=== PATIENT | male | born 1985 | race African-American/Black ===

== ENCOUNTER 2024-03-09 12:40 | Emergency (ER) | payer OTHER ==
--- OUTSIDE RECORDS SUMMARY | 2024-03-09 12:43 | XMS REPORT | Continuity of Care Document ---
Author Name Unknown Address [address] [facility] 1 [address] [place], [place] [id number] [place] [address] thconnect Address [address] [facility] 1 [address] [place] [address] Care Team Providers Care Anger Control Counselor Name Role Phone NO, PCP Primary Care Physician Unavailab LOVE Peterson Attending Clinician Unavailable MARY ELLEN EDWARDS Attending Clinician UnavailPAULIE Lofton Attending Clinician Unavailable LOVE HIGGINS Admitting Clinician Unavailable KADEN EDWARDSUSHOLA Admitting Clinician UnavailPAULIE Lofton Admitting Clinician Unavailable Payers Payer Name Policy Type Policy Number Effective Date Expirati on Date Source 22 [id number] Problems Condition Name Condition Details Condition Category Status Onset Date Resolution Date Last Treatment Date Treating Clinician Comments Source Acute renal failure syndrome Problem [facility] ([facility]) Heat exhaustion Problem [facility] ([facility]) Non-trauma tic rhabdomyol ysis Problem [facility] ([facility]) Dehydratio n Problem [facility] ([facility]) Nausea and vomiting Problem [facility] ([facility]) Allergies, Adverse Reactions, Alerts Allergy Name Allergy Type Status Severity Reaction(s) Onset Date Inactive Date Treating Clinician Comments Source No known drug Allergie s Miscella neous Allergy Active U Not Specified 04-08 10:50: 16 [facility] No known drug Allergie s Miscella neous Allergy Active U Not Specified 04-08 10:50: 16 [facility] No known drug Allergie s Miscella neous Allergy Active U Not Specified 04-08 10:50: 16 [facility] ([facility]) No known drug Allergie s Miscella neous Allergy Active U Not Specified 04-08 10:50: 16 [facility] ([facility]) No known drug Allergie s Miscella neous Allergy Active U Not Specified 04-08 10:50: 16 [facility] ([facility]) No known drug Allergie s Miscella neous Allergy Active U Not Specified 04-08 10:50: 16 [facility] ([facility]) No known drug Allergie s Miscella neous Allergy Active U Not Specified 04-08 10:50: 16 [facility] ([facility]) No known drug Allergie s Miscella neous Allergy Active U Not Specified 02-26 03:54: 05 [facility] ([facility]) No known drug Allergie s Miscella neous Allergy Active U Not Specified 02-26 03:54: 05 [facility] ([facility]) No known drug Allergie s Miscella neous Allergy Active U Not Specified 02-26 03:54: 05 [facility] ([facility]) No known drug Allergie s Miscella neous Allergy Active U Not Specified 02-26 03:54: 05 [facility] ([facility]) No known drug Allergie s Miscella neous Allergy Active U Not Specified 02-26 03:54: 05 [facility] ([facility]) No known drug Allergie s Miscella neous Allergy Active U Not Specified 08-02 12:32: 18 [facility] ([facility]) No known drug Allergie s Miscella neous Allergy Active U Not Specified 08-02 12:32: 18 [facility] ([facility]) No known drug Allergie s Miscella neous Allergy Active U Not Specified 08-02 12:32: 18 [facility] ([facility]) No known drug Allergie s Miscella neous Allergy Active U Not Specified 08-02 12:32: 18 [facility] ([facility]) No known drug Allergie s Miscella neous Allergy Active U Not Specified 08-02 12:32: 18 [facility] ([facility]) No known drug Allergie s Miscella neous Allergy Active U Not Specified 08-02 12:32: 18 [facility] ([facility]) No Known Allergie s NA Active 08-02 12:31: 01 [facility] ([facility]) Medications Ordered Medication Name Filled Medication Name Start Date Stop Date Current Medication? Ordering Clinician Indication Dosage Frequency Signature (SIG) Comments Components Source enoxaparin INJ 30 MG/0.3 ML SOLN enoxaparin INJ 30 MG/0.3 ML SOLN 04-09 09:00: 00 04-08 12:44 :00 No 30mg medication :enoxapari n INJ 30 MG/0.3 ML SOLN|dose: 30.0 mg|route:S UBCUTANEOU S|frequenc y:DAILY [facility] ([facility]) enoxaparin INJ 40 MG/0.4 ML SOLN enoxaparin INJ 40 MG/0.4 ML SOLN 04-09 09:00: 00 04-08 12:44 :00 No 40mg medication :enoxapari n INJ 40 MG/0.4 ML SOLN|dose: 40.0 mg|route:S UBCUTANEOU S|frequenc y:DAILY [facility] ([facility]) NS SOLN NS SOLN 04-09 03:00: 00 04-08 12:44 :00 No 500mL medication :NS SOLN|dose: 500.0 mL|route:I NTRAVENOUS |frequency :EVERY 3 AM [facility] ([facility]) NS SOLN NS SOLN 04-08 19:30: 00 04-08 12:44 :00 No 1000mL medication :NS SOLN|dose: 1000.0 mL|route:I NTRAVENOUS |frequency :CONT [facility] ([facility]) pantoprazol e INJ 40 MG SOLR pantoprazol e INJ 40 MG SOLR 04-08 19:23: 00 04-08 12:44 :00 No 40mg medication :pantopraz ole INJ 40 MG SOLR|dose: 40.0 mg|route:I NTRAVENOUS |frequency :DAILY [facility] ([facility]) LR SOLN LR SOLN 04-08 19:21: 04-08 12:44 :00 No 1000mL medication :LR SOLN|dose: 1000.0 mL|route:I NTRAVENOUS |frequency :CONT [facility] ([facility]) potassium chloride ER 20 MEQ TAB TBCR potassium chloride ER 20 MEQ TAB TBCR 04-08 19:20: 00 04-08 12:44 :00 No 20MEQ medication :potassium chloride ER 20 MEQ TAB TBCR|dose: 20.0 MEQ|route: ORAL|frequ ency:DAILY NEEDED [facility] potassium chloride ER 20 MEQ TAB TBCR potassium chloride ER 20 MEQ TAB TBCR 04-08 19:20: 00 04-08 12:44 :00 No 40MEQ medication :potassium chloride ER 20 MEQ TAB TBCR|dose: 40.0 MEQ|route: ORAL|frequ ency:EVERY 12 HOURS NEEDED [facility] potassium chloride IVPB 20 MEQ/100 ML SOLN potassium chloride IVPB 20 MEQ/100 ML SOLN 04-08 19:20: 00 04-08 12:44 :00 No 20MEQ medication :potassium chloride IVPB 20 MEQ/100 ML SOLN|dose: 20.0 MEQ|route: INTRAVENOU S|frequenc y:EVERY 6 HOURS NEEDED [facility] ([facility]) potassium chloride IVPB 20 MEQ/100 ML SOLN potassium chloride IVPB 20 MEQ/100 ML SOLN 04-08 19:20: 00 04-08 12:44 :00 No 40MEQ medication :potassium chloride IVPB 20 MEQ/100 ML SOLN|dose: 40.0 MEQ|route: INTRAVENOU S|frequenc y:EVERY 8 HOURS NEEDED [facility] ([facility]) magnesium protocol ORAL route TABS magnesium protocol ORAL route TABS 04-08 19:20: 00 04-08 12:44 :00 No 1EA medication :magnesium protocol ORAL route TABS|dose: 1.0 EA|route:O RAL|freque ncy:EVERY 6 HOURS NEEDED [facility] ([facility]) phosphorus protocol ORAL route TABS phosphorus protocol ORAL route TABS 04-08 19:20: 00 04-08 12:44 :00 No 1EA medication :phosphoru s protocol ORAL route TABS|dose: 1.0 EA|route:O RAL|freque ncy:EVERY 6 HOURS NEEDED [facility] ([facility]) calcium protocol ORAL route TABS calcium protocol ORAL route TABS 04-08 19:20: 00 04-08 12:44 :00 No 1EA medication :calcium protocol ORAL route TABS|dose: 1.0 EA|route:O RAL|freque ncy:EVERY 12 HOURS NEEDED [facility] ([facility]) CLARIFICATI ON: HT/WT/ALLER GY MISC CLARIFICATI ON: HT/WT/ALLER GY MISC 04-08 10:50: 00 04-08 12:44 :00 No 1EA medication :CLARIFICA TION: HT/WT/MARIA LUISA RGY MISC|dose: 1.0 EA|route:N OT APPLICABLE |frequency :EVERY 4 HOURS [facility] ([facility]) NS SOLN NS SOLN 04-08 10:44: 00 04-08 12:44 :00 No 1000mL medication :NS SOLN|dose: 1000.0 mL|route:I NTRAVENOUS |frequency :CONT [facility] ([facility]) ondansetron INJ 4 MG/2 ML SOLN ondansetron INJ 4 MG/2 ML SOLN 04-08 10:44: 00 04-08 12:44 :00 No 4mg medication :ondansetr on INJ 4 MG/2 ML SOLN|dose: 4.0 mg|route:I NTRAVENOUS |frequency :EVERY 8 HOURS NEEDED [facility] ([facility]) NS FLUSH SOLN NS FLUSH SOLN 04-08 10:44: 00 04-08 12:44 :00 No 10mL medication :NS FLUSH SOLN|dose: 10.0 mL|route:I NTRAVENOUS |frequency : NEEDED [facility] ([facility]) ondansetron INJ 4 MG/2 ML SOLN ondansetron INJ 4 MG/2 ML SOLN 04-08 08:04: 00 04-08 08:04 :00 No 4mg medication :ondansetr on INJ 4 MG/2 ML SOLN|dose: 4.0 mg|route:I NTRAVENOUS |frequency :ONE TIME [facility] ([facility]) NS SOLN NS SOLN 04-08 08:04: 00 04-08 08:04 :00 No 1000mL medication :NS SOLN|dose: 1000.0 mL|route:I NTRAVENOUS |frequency :ONE TIME [facility] ([facility]) Encounters Start Date/Time End Date/Time Encounter Type Admission Type Attending [facility] Care Department Encounter ID Source 2022-04-08 07:13:00 2022-04-08 12:44:00 Outpatient Encounter 1 [facility]IG[facility] [id number] [facility]) 2020-02-27 03:53:00 2020-02-27 03:53:00 Emergency MARY ELLEN EDWARDS PAULIE [id number] [facility]) 2019-08-02 12:29:00 2019-08-02 12:29:00 Emergency AMADOR CIFUENTES PAULIE [id number] [facility] ([facility]) Results Test Description Test Time Test Comments Results Result Co mments Source Urinalysis panel - Urine by [id number] 13:34:00* Test Item Value Reference Range Interpretation Comme nts Ketones [Presence] in Urine (test code = 41972-1) TRACE NEG N pH of Urine (test code = 2756-5) 5.0 1 5.0-7.5 N Protein [Presence] in Urine (test code = 2887-8) 100 MG/DL NEGATIVE N Urobilinogen [Presence] in U rine (test code = 65977-5) 0.2 EU/DL 0.2-1.0 N Specific gravity of Urine (t est code = 2965-2) 1.02 1 1.0-1.025 N Leukocytes [Presence] in Uri ne sediment by Light microscopy (test code = 10018-5) 7 /HPF 0.0-5.0 H Erythrocytes [Presence] in U rine sediment by Light microscopy (test code = 64387-2) 5 /HPF 0.0-2.0 H Casts [Presence] in Urine by Automated (test code = 14372-4) 0 /LPF 0.0-3.0 N Epithelial cells [Presence] in Urine sediment by Light microscopy (test code = 04850-7) 63 /LPF N Bacteria [#/volume] in Urine by Automated count (test code = 83085-4) MODERATE NONE N [facility]BASIC METABOLIC [id number] 11:22:00* Test Item Value Reference Range Interpretation Comme nts SODIUM (test code = NA) 137 MMOL/L 137-145 K+ (test code = KSERUM) 4.8 MMOL/L 3.5-5.1 CHLORIDE (test code = CL) 87 MMOL/L 98-107 L CO2 (test code = CO2) 15 MMOL/L 22-30 L BUN (test code = BUN) 55 MG/DL 9-20 H CREA (test code = CREA) 6.7 MG/DL 0.8-1.5 H GLUCOSE (test code = GLUCOSE) 102 MG/DL 70-99 H Fasting glucos e normal <100 MG/DL- [employer] recommendation CALCIUM (test code = CABLOOD) 12.1 MG/DL 8.4-10.2 H GFR (test code = GFR) 12 mL/min/1.73m2 A GFR of >90 mL/min/1.73m2 is considered normal. The GFR calculation on patients over 70 years of age is not validated by the three knife trimmer and may not represent the patients true renal function. Basic metabolic 2000 panel - Serum or [id number] 11:22:00* Test Item Value Reference Range Interpretation Comme nts Sodium [Moles/volume] in Blood (test code = 2947-0) 137 MMOL/L 137.0-145.0 N Potassium [Moles/volume] in Blood (test code = 6298-4) 4.8 MMOL/L 3.5-5.1 N Chloride [Moles/volume] in Blood (test code = 2069-3) 87 MMOL/L 98.0-107.0 L Carbon dioxide, total [Moles/volume] in Blood (test code = 80491-9) 15 MMOL/L 22.0-30.0 L Urea nitrogen [Mass/volume] in Serum or Plasma (test code = 3094-0) 55 MG/DL 9.0-20.0 H Creatinine [Mass/volume] in Blood (test code = 44026-8) 6.7 MG/DL 0.8-1.5 H Glucose [Mass/volume] in Blood (test code = 2339-0) 102 MG/DL 70.0-99.0 H Calcium [Mass/volume] in Serum or Plasma (test code = 44467-4) 12.1 MG/DL 8.4-10.2 H Estimated or measured glomerular filtration rate less than 50 percent [- Reported] (test code = 41341-3) 12 mL/min/1.73m2 [facility] ([place])HEPATITIS C ANTIBODY [id number] 10:32:00* Test Item Value Reference Range Interpretation Comme nts SCRN HCV (test code = SCRN HCV) NEGATIVE NEGATIVE Hepatitis C Anti body test is for screening purposes only. All reactives will be confirmed by additional testing. ER SCREEN FOR HIV 10:32:00* Test Item Value Reference Range Interpretation Comme nts HIV 1/2 AB (test code = SCRN HIV) NEGATIVE NEGATIVE This test is us ed for SCREENING purposes only. All reactive results are prelimenary and confirmation results will follow. Hepatitis C virus Ab [Presence] in [id number] [facility]+2 Ab [Units/volume] in [id number] 10:32:00Negative [facility])[id number] 09:20:00* Test Item Value Reference Range Interpretation Comme nts WBC (test code = WBC) 10.6 K/UL 3.5-10.9 RBC (test code = RBC) 5.58 M/UL 4.3-5.7 HGB (test code = HGB) 16.5 G/DL 13.0-17.9 HCT (test code = HCT) 46.9 % 38-52 MCV (test code = MCV) 84.1 FL 80-98 MCH (test code = MCH) 29.6 PG 28-32 MCHC (test code = MCHC) 35.2 G/DL 32.5-36.5 RDW (test code = RDW) 14.1 % 11.5-14.5 PLT (test code = PLT) 301 K/UL 150-450 MPV (test code = MPV) 11.8 FL 7.4-10.4 H MANDIFF (test code = MANDIFF) NO SCAN (test code = SCAN) NO NEUT% (test code = NEUT%) 66.4 % 40-75 LYMPH% (test code = LYMPH%) 24.6 % 24-44 MONO% (test code = MONO%) 8.1 % 0-13 EOS% (test code = EOS%) 0.1 % 0-4 BASO % (test code = BASO%) 0.4 % 0-2 IG (test code = IG) 0 % 0-1 IG% (test code = IG%) 0.4 % 0-1 IG% = Metamyeloc ytes, Myelocytes, and Promyelocytes. (Immature neutrophils not including "bands".) > 3% IG indicates risk of sepsis NRBC% (test code = NRBC%) 0 /100 WBC ABS NEUT (test code = NEUT) 7.0 K/UL 1.2-7.2 LIVER [id number] 09:20:00* Test Item Value Reference Range Interpretation Comme nts TOTPROT (test code = TOTPROT) 11.8 G/DL 6.3-8.2 H ALBUMIN (test code = ALBSERUM) >6.0 G/DL 3.5-5.0 H BILITOT (test code = BILITOT) 1.0 MG/DL 0.2-1.3 BILIDIR (test code = BILIDIR) 0.4 MG/DL 0.0-0.4 AST (test code = AST) 54 U/L 15-46 H PHOSALK (test code = PHOSALK) 106 U/L 38-126 ALTV (test code = ALTV) 32 U/L 13-69 CBC W Auto Differential panel - [id number] 09:20:00* Test Item Value Reference Range Interpretation Comme nts Leukocytes other [Identifier ] in Blood by Automated count (test code = 64163-6) 10.6 K/UL 3.5-10.9 N Erythrocytes [#/volume] in B lood (test code = 51925-0) 5.58 M/UL 4.3-5.7 N Hemoglobin A/Hemoglobin.tota l in Blood (test code = 4546-8) 16.5 G/DL 13.0-17.9 N Hematocrit [Volume Fraction] of Blood (test code = 78162-9) 46.9 % 38.0-52.0 N Erythrocyte mean corpuscular volume [Entitic volume] (test code = 98122-4) 84.1 FL 80.0-98.0 N Erythrocyte mean corpuscular hemoglobin [Entitic mass] (test code = 93812-2) 29.6 PG 28.0-32.0 N Erythrocyte mean corpuscular hemoglobin concentration [Mass/volume] (test code = 68435-6) 35.2 G/DL 32.5-36.5 N Erythrocyte distribution wid th [Ratio] (test code = 50844-4) 14.1 % 11.5-14.5 N Platelets panel - Blood by Automated count (test code = 74671-2) 301 K/UL 150.0-450.0 N Platelet mean volume [Entiti c volume] in Blood by Automated count (test code = 94438-9) 11.8 FL 7.4-10.4 H Neutrophils.segmented/100 leukocytes in Blood (test code = 52870-6) 66.4 % 40.0-75.0 N Lymphocytes Variant/100 leuk ocytes in Blood (test code = 57692-1) 24.6 % 24.0-44.0 N Lymphocytes+Monocytes/100 leukocytes in Blood (test code = 4662-3) 8.1 % 0.0-13.0 N Eosinophils [#/volume] in Bl ood (test code = 72935-8) 0.1 % 0.0-4.0 N Basophils [#/volume] in Bloo d (test code = 53835-4) 0.4 % 0.0-2.0 N IG (test code = IG) 0 % 0.0-1.0 N IG% (test code = IG%) 0.4 % 0.0-1.0 N NRBC% (test code = NRBC%) 0 /100 WBC N Neutrophils [#/volume] in Bl ood (test code = 03301-0) 7.0 K/UL 1.2-7.2 N [facility])Hepatic function 2000 panel - Serum or Plasma 2022-04-08 09:20:00* Test Item Value Reference Range Interpretation Comme nts Protein [Mass/volume] in Ser um or Plasma (test code = 2885-2) 11.8 G/DL 6.3-8.2 H Albumin [Presence] in Serum or Plasma (test code = 45222-8) >6.0 3.5-5.0 H Bilirubin direct and total p jayden [Mass/volume] - Serum or Plasma (test code = 78771-3) 1.0 MG/DL 0.2-1.3 N Bilirubin.direct [Mass/volum e] in Serum or Plasma (test code = 1968-7) 0.4 MG/DL 0.0-0.4 N Aspartate aminotransferase [Enzymatic activity/volume] in Serum or Plasma (test code = 1920-8) 54 U/L 15.0-46.0 H Alkaline phosphatase [Enzyma tic activity/volume] in Serum or Plasma (test code = 6768-6) 106 U/L 38.0-126.0 N ALTV (test code = ALTV) 32 U/L 13.0-69.0 N [facility])CREATINE [id number] 09:18:00* Test Item Value Reference Range Interpretation Comme nts CK (test code = CK) 1113 U/L 55-170 H Creatine kinase isoenzymes [interpretation] [id number] 09:18:00* Test Item Value Reference Range Interpretation Comme nts Creatine kinase isoenzymes [interpretation] in Serum or Plasma Narrative (test code = 47383-6) 1113 U/L 55.0-170.0 H [facility])[id number] 09:13:00* Test Item Value Reference Range Interpretation Comme nts LIPASE (test code = LIPA) 188 U/L 23-300 Lipase [Enzymatic activity/volume] in Serum [id number] 09:13:00* Test Item Value Reference Range Interpretation Comme nts Lipase [Enzymatic activity/v olume] in Serum or Plasma (test code = 3040-3) 188 U/L 23.0-300.0 N [facility])INFLUENZA [id number] 09:07:00* Test Item Value Reference Range Interpretation Comme nts FLU A (test code = FLU A) NEGATIVE NEGATIVE FLU B (test code = FLU B) NEGATIVE NEGATIVE FLU INTERNAL POSITIVE CNTRL (test code = FLU IPC) PASS PASS INFLUENZA LOT # (test code = FLULOT) [id number] INFLUENZA EXPIRATION DATE (t est code = FLUEXP) 05-09-2023 Influenza virus A+B Ag [Presence] in Nose by [id number] 09:07:00* Test Item Value Reference Range Interpretation Comme [facility] INFLUENZA LOT # (test code = FLULOT) [id number] 1 N INFLUENZA EXPIRATION DATE (t est code = FLUEXP) 05-09-2023 N [facility])COVID SYMPTOMATIC ER [id number] 09:04:00* Test Item Value Reference Range Interpretation Comme nts CORONAVIRUS (COVID-19)BY PCR (test code = [id number]) NEGATIVE SARS-CoV-2 (COVID-19) N gene [Presence] in [id number] 09:04:00Negative [facility])ISTAT CHEM [id number] 08:16:00* Test Item Value Reference Range Interpretation Comme nts ISTATNA (test code = ISTATNA) 136 MMOL/L 137-145 L ISTATK (test code = ISTATK) 3.9 MMOL/L 3.6-5.0 ISTATCL (test code = ISTATCL) 91 MMOL/L 98-107 L ISTIONCA (test code = ISTIONCA) 1.16 MMOL/L 1.12-1.32 ISTCO2 (test code = ISTCO2) 26 MMOL/L 22-30 ISTATGLU (test code = ISTATGLU) 105 MG/DL 65-110 ISTATBUN (test code = ISTATBUN) 54.0 MG/DL 7.0-20.0 H ISTCREA (test code = ISTCREA) 6.8 MG/DL 0.7-1.5 H ISTATHCT (test code = ISTATHCT) 58 %PCV 37.0-52.0 H ISTATHGB (test code = ISTATHGB) 19.7 G/DL 12.0-18.0 H Notified Nurse/M D of results outside of Reference Ranges ISTANGAP (test code = ISTANGAP) 25 MMOL/L Notified Nurse/M D of results outside of Reference Ranges ISTAT CHEM [id number] 08:16:00* Test Item Value Reference Range Interpretation Comme nts Sodium [Moles/volume] in Art erial blood (test code = 81961-9) 136 MMOL/L 137.0-145.0 L Potassium [Moles/volume] in Arterial blood (test code = 51807-1) 3.9 MMOL/L 3.6-5.0 N Chloride [Moles/volume] in Arterial blood (test code = 35980-6) 91 MMOL/L 98.0-107.0 L Calcium.ionized [Mass/volume ] in Arterial blood (test code = 33729-4) 1.16 MMOL/L 1.12-1.32 N ISTCO2 (test code = ISTCO2) 26 MMOL/L 22.0-30.0 N Glucose [Mass/volume] in Art erial blood (test code = 97290-0) 105 MG/DL 65.0-110.0 N Urea nitrogen [Mass/volume] in Arterial blood (test code = 44302-4) 54.0 MG/DL 7.0-20.0 H Creatinine [Mass/volume] in Blood (test code = 56212-3) 6.8 MG/DL 0.7-1.5 H Hematocrit [Volume Fraction] of Arterial blood (test code = 25140-3) 58 %PCV 37.0-52.0 H Hemoglobin [Mass/volume] in Arterial cord blood (test code = 58021-3) 19.7 G/DL 12.0-18.0 H ISTANGAP (test code = ISTANGAP) 25 MMOL/L N [facility]SPINE LUMBAR [id number] 07:07:00[place] [id number] IMAGING REPORTPatient Name: Hector MUNIZ of Service: [id number]: 35 Sex: M Order #: [id number] [facility] 1985 [facility] Number: [id number] Record Number: [id number] Hospital Number: [id number] Physician: Dixie EDWARDS Physician: JULIETH EDWARDS VIEW SPINE LUMBAR SACR 02/27/2020 5:50AMHistory: Pain without Trauma/InjuryComparisons: None Available.FINDINGS:Vertebral body heights and alignments are maintained.Disc spaces are preserved.There is no fracture, lytic or blastic bone lesion.IMPRESSION:No acute abnormality of the lumbar spine.Electronically Signed By: Kevin Perez M.D., 02/27/2020 7:04 AMLegally authenticated by ANA PORRAS 2020-02-27 07:04:59HIP JOINT 2 VIEWS 2019-08-02 14:19:[address] [id number] IMAGING REPORTPatient Name: Hector MUNIZ of Service: [id number]: 34 Sex: M Order #: [id number] Room: ERSDOB: 1985 X-Ray Number: [id number] Record Number: [id number] Hospital Number: [id number] Physician: AMADOR CIFUENTES Physician: FEHRENBACHER, JOHNLEFT RIBS,RIGHT HIP JOINT 2 VIEWS 08/02/20192:06 PMHistory: Blunt Chest TraumaComparisons: None Available.LEFT RIBS:Findings:There is no rib fracture or destruction.There is no lytic or blastic bone lesion.Slight dextroconvex mid thoracic scoliosis.Impression:Unremarkable rib series. RIGHT hip:FINDINGS:There is no acute fracture or dislocation.There are no lytic or blastic bone lesions.There are nodefinite osseous erosions or bony destruction detected.There is no radiopaque foreign body.There isno soft tissue gas present.IMPRESSION:No acute bony abnormality is identified.Electronically SignedBy: Kevin Perez M.D., 08/02/2019 2:16 PMLegally authenticated by ANA PORRAS 2019-08-02 14:16:[id number] 14:19:[address] [id number] IMAGING REPORTPatient Name: Hector MUNIZ of Service: [id number]: 34 Sex: M Order #: [id number] [facility] 1985 [facility] Number: [id number] Record Number: [id number] Hospital Number: [id number] Physician: AMADOR CIFUENTES Physician: ZAY RICCI,RIGHT HIP JOINT 2 VIEWS 08/02/20192:06 PMHistory: Blunt Chest TraumaComparisons: None Available.LEFT RIBS:Findings:There is no rib fracture or destruction.There is no lytic or blastic bone lesion.Slight dextroconvex mid thoracic scoliosis.Impression:Unremarkable rib series. RIGHT hip:FINDINGS:There is no acute fracture or dislocation.There are no lytic or blastic bone lesions.There are nodefinite osseous erosions or bony destruction detected.There is no radiopaque foreign body.There isno soft tissue gas present.IMPRESSION:No acute bony abnormality is identified.Electronically SignedBy: Kevin Perez M.D., 08/02/2019 2:16 PMLegally authenticated by ANA PORRAS 2019-08-02 14:16:21 Notes Date/Time Note Provider Source 2022-04-11 23:18:56 Acute renal failure syndrome ; Heat exhaustion ; Non-traumatic rhabdomyolysis ; Dehydration ; Nausea and vomiting ; [facility] PATIENT OPEN ORDERS Code System Description Frequency Occurrences Priority Start Date Ordering Physician Updated By EK[facility] EKG ONE TIME 0 Stat [facility] 2021 12:55:00 PM [facility] [place] [id number] on April 08, 2022 12:55:00 PM [facility] ADMITTO [facility] ADMITTING MD AND DIAGNOSIS ONE TIME 0 Routine Septembe 2021 3:44:00 PM [facility] BANKOLE OLUSHOLA OBANKOLE on April 08, 2022 3:47:00 PM [facility] CARDIAC [facility] LOW FAT/LOW CHOL/LOW NA DIET ONE TIME 0 Timed Septembe 2021 3:44:00 PM [facility] BANKOLE OLUSHOLA OBANKOLE on April 08, 2022 3:47:00 PM [facility] OXYGEN [facility] OXYGEN WITH OTP PROTOCOL [facility] UTC GRACE HYDE OBANKOLE on April 08, 2022 3:47:00 PM UTC OBSERVPT MEDHOST PLACE IN OBSERVATION STATUS ONE TIME 0 [facility]ine [facility] 4:27:00 PM [place] RONALDO ALEMAN [id number] on April 08, 2022 4:27:[place] [address]-6 LOINC Thyrotropin in Serum or Plasma ONE TIME 0 [facility]ine [facility] 2021 12:21:00 AM [place] JONN PÉREZ - RES [id number] on April 09, 2022 12:24:[place] [address]-9 LOINC Thyroxine (T4) free index in Serum or Plasma ONE TIME 0 Routine [facility] 2021 12:21:00 AM [place] JONN PÉREZ - RES [id number] on April 09, 2022 12:24:00 AM UT FULL [facility] FULL LIQUID DIET ONE TIME 0 Timed [facility] 2021 12:21:00 AM [place] JONN PÉREZ - SHERORN [id number] on April 09, 2022 12:24:00 AM [place] SCHEDULED PROCEDURES Code System Description Status Scheduled Date Updated By Patient scheduled procedure information is not available. 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 Status Start Date End Date Update d By RONALDO ALEMAN Attending normal April 08, 2022 4:59:42 PM [place] April 08, 2022 5:44:00 PM UTC [id number] on April 08, 2022 4:59:42 PM [place] RONALDO ALEMAN Admitting normal April 08, 2022 4:59:42 PM UTC April 08, 2022 5:44:00 PM UTC [id number] on April 08, 2022 4:59:42 PM [place] NO PCP Referring normal April 08, 2022 2:11:13 PM UTC April 08, 2022 5:44:00 PM UTC [id number] on April 08, 2022 4:59:42 PM UT GRACE HYDE Attending normal March 192021 2:11:13 PM UTC April 08, 2022 4:59:42 PM UTC [id number] on April 08, 2022 4:59:42 PM UT GRACE HYDE Admitting normal March 192021 2:11:13 PM [facility] April 08, 2022 4:59:42 PM [facility] [id number] on April 08, 2022 4:59:42 PM [facility] NO PCP PCP normal April 08, 2022 12:13:18 PM [facility] April 08, 2022 5:44:00 PM [facility] [id number] on April 08, 2022 4:59:42 PM [facility]2020-08-12 07:04:[address] [address] DIAGNOSTIC IMAGING REPORT Patient Name: ILSA MUNIZ Date of Service: 02-27-2020 Age: 35 Sex: M Order #: [id number] Room: [facility] : 1985 X-Ray Number: [id number] Hospital Number: [id number] Admitting Physician: MARY ELLEN EDWARDS Ordering Physician: MARY ELLEN EDWARDS 6 VIEW SPINE LUMBAR SACR 02/27/2020 5:50 AM History: Pain without Trauma/Injury Comparisons: None Available. FINDINGS: Vertebral body heights and alignments are maintained. Disc spaces are preserved. There is no fracture, lytic or blastic bone lesion. IMPRESSION: No acute abnormality of the lumbar spine. Electronically Signed By: Kevin Perez M.D., 02/27/2020 7:04 AM Legally authenticated by ANA PORRAS 2020-02-27 07:04:59OCTAVIA PEREZ
[2024-03-09] MEDS ORDERED: ONDANSETRON 4 MG/2 ML VIAL ONE (13:07)
[2024-03-09] MEDS ORDERED: NA CHLORIDE 0.9% 1,000 ML ONE ×2 (13:08→13:46)
[2024-03-09 13:11] LABS: Absolute Eosinophils 0.1 K/uL (0-0.5); Absolute Lymphocytes (CBC) 2.7 K/uL (0.7-4.9); Absolute Monocytes 0.7 K/uL (0.1-1.3); Absolute Neutrophil 3.9 K/uL (1.8-8.0); Basophils % 0.5 % (0-1.3); Eosinophils % 1.4 % (0-4.4); Hematocrit 39.4 % (39.6-49.0); Hemoglobin 13.2 g/dL (13.6-17.9); Lymphocytes % 36.6 % (15.3-44.8); MCH 29.2 pg (27.0-35.0); MCHC 33.4 g/dL (32.0-36.0); MCV 87.6 fL (80-100); Neutrophils % 52.5 % (41.7-73.7); Platelets 259 thou/uL (152-406); Red Cell Distribution Width 13.7 % (12.1-15.2)
[2024-03-09 13:28] LABS: Albumin 4.4 g/dL (3.4-5.0); Albumin/Globulin Ratio 0.9 (1.1-1.8); Anion Gap 9.8 mEq/L (5.0-15.0); Bilirubin Total 0.3 mg/dL (0.2-1.0); Globulin 4.7 g/dL (2.3-3.5); Potassium 2.8 mEq/L (3.5-5.1); Protein, Total 9.1 g/dL (6.4-8.2)
[2024-03-09] MEDS ORDERED: NS KCL 20MEQ 1,000 ML IV ONE (13:46)
--- NOTE | 2024-03-09 15:10 | EDPHYS ---
Physician Documentation [facility] Name: Ryan Saab Jr Age: 39 yrs Sex: Male : 1985 Arrival Date: 03/09/2024 Time: 12:40 Bed 13 Private MD: ED Physician Ranjan Olvera HPI: 03/09 13:38 This 39 yrs old Black Male presents to ER via Ambulatory with complaints of rn Nausea/Vomiting - body cramps. 13:38 The patient presents to the emergency department with nausea, vomiting. rn 13:38 Onset: The symptoms/episode began/occurred 3 day(s) ago. 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 The symptoms are aggravated by nothing. The symptoms are alleviated by nothing. Severity of symptoms: At their worst the symptoms were moderate in the emergency department the symptoms have improved. Patient reports works for [employer], working outdoors a few days ago, severe cramping with generalized weakness and nausea with vomiting. Reports overall feeling a little bit better but still generalized weakness and feels dehydrated. No vomiting since last night. Denies fever or feeling ill. Not associated with runny nose or cough.. Historical: - Allergies: 12:50 No Known Allergies; kc6 - Home Meds: 12:50 None [Active]; kc6 - PMHx: 12:50 None; kc6 - PSHx: 12:50 None; kc6 - Immunization history:: Adult Immunizations not up to date. - Infectious Disease History:: Denies. - Social history:: Smoking status: Patient reports the use of cigarette tobacco products, smokes one pack cigarettes per day. - Family history:: not pertinent. - Hospitalizations: : No recent hospitalization is reported. ROS: 13:38 Constitutional: Negative for fever, chills, and weight loss, Cardiovascular: Negative rn for chest pain, palpitations, and edema, Respiratory: Negative for shortness of breath, cough, wheezing, and pleuritic chest pain, Abdomen/GI: Positive for nausea Back: Negative for injury and pain, MS/Extremity: Negative for injury and deformity, Skin: Negative for injury, rash, and discoloration, Neuro: Positive for generalized weakness Exam: 13:38 Constitutional: This is a well developed, well nourished patient who is awake, alert, rn and in no acute distress. ENT: Dry mucous membranes Cardiovascular: Tachycardic, regular. No pulse deficits. Respiratory: No increased work of breathing, no retractions or nasal flaring. Abdomen/GI: Soft, non-tender MS/ Extremity: Pulses equal, no cyanosis. Neuro: Awake and alert, GCS 15 Vital Signs: 12:49 BP 159 / 90; Pulse 103; Resp 19 S; Temp 98.5(O); Pulse Ox 99% on R/A; kc6 13:00 BP 140 / 88; Pulse 80; Resp 17; Pulse Ox 98% on R/A; rs5 14:30 BP 142 / 81; Pulse 77; Resp 17; Pulse Ox 98% on R/A; rs5 15:22 BP 145 / 79; Pulse 71; Resp 17; Pulse Ox 99% on R/A; rs5 MDM: 12:46 Patient medically screened. rn 15:08 Differential diagnosis: Rhabdomyolysis, dehydration, acute kidney injury. Data rn reviewed: vital signs, nurses notes, lab test result(s), and as a result, I will admit patient. Consideration of Admission/Observation Patient was admitted/placed on observation. Escalation of care including admission/observation considered. Counseling: I had a detailed discussion with the patient and/or guardian regarding the historical points, exam findings, and any diagnostic results supporting the discharge/admit diagnosis, lab results, the need for further work-up and treatment in the hospital. Response to treatment: the patient's symptoms have markedly improved after treatment, and as a result, I will admit patient. Refusal of service: The patient/guardian displays adequate decision making capability and despite a detailed discussion of alternatives, benefits, risks, and consequences refuses: Admission to the hospital for further work-up and treatment. ED course: Patient with rhabdomyolysis, acute kidney injury, no baseline to compare to but recommend admission to the hospital with e mail system administrator consultation. Patient states would rather get the fluids now and go home and states will return if anything worsens. He does not want to be admitted to the hospital and understands risks of discharge home.. 03/09 12:47 Order name: CBC with Diff; Complete Time: 13:33 rn 03/09 12:47 Order name: CMP; Complete Time: 14:59 rn 03/09 12:47 Order name: Lipase; Complete Time: 14:59 rn 03/09 13:35 Order name: LAB Add On eb 03/09 13:43 Order name: Creatine Phosphokinase; Complete Time: 14:59 EDMS 03/09 12:47 Order name: IV Saline Lock; Complete Time: 13:18 rn 03/09 12:47 Order name: Labs collected and sent; Complete Time: 13:18 rn Administered Medications: 13:10 Drug: NS 0.9% IV 1000 ml IV at 1 bolus Per protocol; 1000 mL bolus Route: IV; Rate: 1 rs5 bolus; Site: right antecubital; 14:20 Follow up: IV Status: Completed infusion rs5 13:10 Drug: Ondansetron IVP 4 mg IVP once; over 2 minutes Route: IVP; Site: right antecubital;rs5 13:30 Follow up: Response: No adverse reaction; Nausea is decreased rs5 13:54 Drug: Potassium Chloride IV 20 mEq IV at calculated rate once; administer over 1-2 rs5 hours Route: IV; Rate: calculated rate; Site: right antecubital; 14:20 Follow up: Response: No adverse reaction rs5 13:55 Drug: NS 0.9% IV 1000 ml IV at 1000 ml once Route: IV; Rate: 1000 ml; Site: right rs5 antecubital; 15:00 Follow up: IV Status: Completed infusion rs5 Disposition Summary: 03/09/24 15:09 Discharge Ordered Notes: Location: Home rn Problem: new rn Symptoms: have improved rn Condition: Stable rn Diagnosis - Rhabdomyolysis rn - Dehydration rn Followup: rn - With: Caroline Serrano MD - When: 2 - 3 days - Reason: Recheck today's complaints, Re-evaluation by your physician Discharge Instructions: - Discharge Summary Sheet rn - Dehydration, Adult rn - Rhabdomyolysis rn - Acute Kidney Injury, Adult rn Forms: - Medication Reconciliation Form rn - Antibiotic internet sourcer - Prescription Opioid Use rn - Patient Portal Instructions rn - Leadership Thank You Letter rn - Work release form ap3 Signatures: Dispatcher [employer] Ranjan Sherman MD MD rn Campbell, Kaitlyn, RN RN kc6 Tera Gross RN RN rs5
--- NOTE | 2024-03-09 15:10 | ER ---
Nurse's Notes [facility] Name: Ryan Saab Jr Age: 39 yrs Sex: Male : 1985 Arrival Date: 03/09/2024 Time: 12:40 Bed 13 Private MD: Diagnosis: Rhabdomyolysis;Dehydration Presentation: 03/09 12:49 Chief complaint: Patient states: n/v and body cramping x3 days. reports working in the [facility] [employer] alot. Coronavirus screen: At this time, the client does not indicate any symptoms associated with coronavirus-19. Ebola Screen: No symptoms or risks identified at this time. Initial Sepsis Screen: Does the patient meet any 2 criteria? HR > 90 bpm. Does the patient have a suspected source of infection? No. Patient's initial sepsis screen is negative. Risk Assessment: Do you want to hurt yourself or someone else? Patient reports no desire to harm self or others. Onset of symptoms was March 09, 2024. 12:49 Method Of Arrival: Ambulatory [facility] 12:49 Acuity: STEPHANIE 3 [facility] Historical: - Allergies: 12:50 No Known Allergies; [facility] - Home Meds: 12:50 None [Active]; [facility] - PMHx: 12:50 None; [facility] - PSHx: 12:50 None; [facility] - Immunization history:: Adult Immunizations not up to date. - Infectious Disease History:: Denies. - Social history:: Smoking status: Patient reports the use of cigarette tobacco products, smokes one pack cigarettes per day. - Family history:: not pertinent. - Hospitalizations: : No recent hospitalization is reported. Screenin:45 [facility] ED Fall Risk Assessment (Adult) History of falling in the last 3 months, rs5 including since admission No falls in past 3 months (0 pts) Confusion or Disorientation No (0 pts) Intoxicated or Sedated No (0 pts) Impaired Gait No (0 pts) Mobility Assist Device Used No (0 pt) Altered Elimination No (0 pt) Score/Fall Risk Level 0 - 2 = Low Risk Oriented to surroundings, Maintained a safe environment. 12:45 Abuse screen: Denies threats or abuse. Nutritional screening: No deficits noted. rs5 Tuberculosis screening: No symptoms or risk factors identified. Assessment: 12:45 General: Appears in no apparent distress. uncomfortable, Behavior is calm, cooperative. rs5 Pain: Denies pain. Neuro: Level of Consciousness is awake, alert, obeys commands, Oriented to person, place, time, situation. Cardiovascular: Patient's skin is warm and dry. Respiratory: Airway is patent Respiratory effort is even, unlabored, Respiratory pattern is regular, symmetrical. GI: Abdomen is round non-distended, Abd is soft and non tender X 4 quads. Reports nausea. : No signs and/or symptoms were reported regarding the genitourinary system. EENT: No signs and/or symptoms were reported regarding the EENT system. Derm: Skin is intact, Skin is pink, warm \T\ dry. Musculoskeletal: Range of motion: intact in all extremities, Reports generalized cramping. 13:50 Reassessment: Patient and/or family updated on plan of care and expected duration. Pain rs5 level reassessed. Patient is alert, oriented x 3, equal unlabored respirations, skin warm/dry/pink. 14:55 Reassessment: Patient and/or family updated on plan of care and expected duration. Pain rs5 level reassessed. Patient is alert, oriented x 3, equal unlabored respirations, skin warm/dry/pink. Patient states feeling better. Patient states symptoms have improved. 15:22 Reassessment: No changes from previously documented assessment. rs5 Vital Signs: 12:49 BP 159 / 90; Pulse 103; Resp 19 S; Temp 98.5(O); Pulse Ox 99% on R/A; kc6 13:00 BP 140 / 88; Pulse 80; Resp 17; Pulse Ox 98% on R/A; rs5 14:30 BP 142 / 81; Pulse 77; Resp 17; Pulse Ox 98% on R/A; rs5 15:22 BP 145 / 79; Pulse 71; Resp 17; Pulse Ox 99% on R/A; rs5 ED Course: 12:43 Patient arrived in ED. ra3 12:45 Patient has correct armband on for positive identification. Placed in gown. Bed in low rs5 position. Call light in reach. Side rails up X2. 12:45 No provider procedures requiring assistance completed. rs5 12:46 Ranjan Olvera MD is Attending Physician. rn 12:50 Triage completed. kc6 12:50 Arm band placed on. kc6 12:51 Inserted saline lock: 20 gauge in right antecubital area, using aseptic technique. rs5 Blood collected. Flushed with 10 mL NS. 12:59 Tera Gross, RN is Primary Nurse. rs5 15:09 Caroline Serrano MD is Referral Physician. rn 15:33 Provided Education on: discharge instructions. ap3 15:33 IV discontinued, intact, bleeding controlled, No redness/swelling at site. Pressure ap3 dressing applied. 16:57 LAB Add On Sent. rs5 Administered Medications: 13:10 Drug: NS 0.9% IV 1000 ml IV at 1 bolus Per protocol; 1000 mL bolus Route: IV; Rate: 1 rs5 bolus; Site: right antecubital; 14:20 Follow up: IV Status: Completed infusion rs5 13:10 Drug: Ondansetron IVP 4 mg IVP once; over 2 minutes Route: IVP; Site: right antecubital;rs5 13:30 Follow up: Response: No adverse reaction; Nausea is decreased rs5 13:54 Drug: Potassium Chloride IV 20 mEq IV at calculated rate once; administer over 1-2 rs5 hours Route: IV; Rate: calculated rate; Site: right antecubital; 14:20 Follow up: Response: No adverse reaction rs5 13:55 Drug: NS 0.9% IV 1000 ml IV at 1000 ml once Route: IV; Rate: 1000 ml; Site: right rs5 antecubital; 15:00 Follow up: IV Status: Completed infusion rs5 Medication: 14:23 VIS not applicable for this client. rs5 Outcome: 15:09 Discharge ordered by . rn 15:33 Discharged to home ambulatory, with significant other, ap3 15:33 Condition: good 15:33 Discharge instructions given to patient, Instructed on discharge instructions, follow up and referral plans. Demonstrated understanding of instructions, follow-up care, 15:33 Patient left the ED. ap3 Signatures: Ranjan Olvera MD MD rn Prokisch, Amanda, RN RN ap3 Cassie Finch RN RN kc6 Tera Gross, KIAH RN rs5 Moraima Bunn 3
[2024-03-09 15:51] VITALS: BP 159/90; TEMP 98.5; O2SAT 99
== END 2024-03-09 15:33 | disposition home or self-care (01) ==
LOC: ER 12:40
DX: M62.82 Rhabdomyolysis (principal); E86.0 Dehydration; F17.210 Nicotine dependence, cigarettes, uncomplicated
CPT/HCPCS: 96361; 85025; 36415; 82550; 83690; 80053; 96375; 96374; 99284; J2405; J7030 ×2; J3480